=== PATIENT | female | born 1995 ===

== ENCOUNTER 2018-02-26 15:07 | Emergency (ER) | payer OTHER ==
[~2018-02-26] VITALS: Ht 170.2 cm; Wt 62.6 kg
[2018-02-26] MEDS ORDERED: PRENATABS FA T1 EACH (15:46)
[2018-02-26] MEDS ORDERED: PROGESTERONE200 MG (15:46)
== END 2018-02-26 19:48 | disposition home or self-care (01) ==
LOC: ER 15:07
DX: O20.0 Threatened abortion (principal)